=== PATIENT | male | born 1970 | race African-American/Black ===

== ENCOUNTER 2024-01-09 20:13 | Emergency (ER) | payer MEDICARE ==
[~2024-01-09] VITALS: Ht 162.6 cm; Wt 54.5 kg
[2024-01-09 20:19] VITALS: TEMP 98.1
[2024-01-09] MEDS ORDERED: LISI-658 PO (20:34)
[2024-01-09] MEDS ORDERED: DICY-1 PO (20:43)
[2024-01-09] MEDS ORDERED: AMLO-258 PO (20:43)
[2024-01-09] MEDS ORDERED: PANT-31 PO (20:43)
[2024-01-09] MEDS ORDERED: FOLI-130 PO (20:43)
[2024-01-09] MEDS ORDERED: LEVO50 PO (20:43)
[2024-01-09] MEDS ORDERED: ATOR40TA28 PO (20:43)
[2024-01-09] MEDS ORDERED: AMYL1CAP63 PO (20:43)
[2024-01-09] MEDS ORDERED: LACO100 PO (20:43)
[2024-01-09] MEDS ORDERED: TRAZ-252 PO (20:43)
[2024-01-09] MEDS ORDERED: RISP-32 PO (20:43)
[2024-01-09] MEDS ORDERED: LORazepam 2 MG/ML VIAL ONE (21:30)
[2024-01-09] MEDS ORDERED: LORazepam 2 MG/ML VIAL IM ONE (21:45)
[2024-01-09] MEDS: LACOSAMIDE 100 MG TABLET PO ONE (22:02)
[2024-01-09] MEDS: LORazepam 2 MG/ML VIAL IVP ONE (22:02)
[2024-01-09 22:35] LABS: BASOPHILS % (AUTO) 0.3 % (0.0-2.0); EOSINOPHILS % (AUTO) 0.4 % (1.0-6.0); HEMATOCRIT 30.6 % (41-53); HEMOGLOBIN 9.6 g/dL (13.5-17.5); LYMPHOCYTES # (AUTO) 1.8 K/uL (1.0-4.8); MEAN CORPUSCULAR HEMOGLOBIN 27.9 pg (26.0-34.0); MEAN CORPUSCULAR HGB CONC 31.4 G/dL (31.0-37.0); MEAN CORPUSCULAR VOLUME 89 fL (80-100); MONOCYTES # (AUTO) 0.9 K/uL (0.1-1.0); NEUTROPHILS # (AUTO) 9.6 K/uL (1.8-7.7); NEUTROPHILS % (AUTO) 77.3 % (40.0-70.0); PLATELET COUNT (AUTO) 194 K/uL (150-450); RED BLOOD CELL COUNT(AUTO) 3.45 MIL/uL (4.50-5.90); RED CELL DISTRIBUTION WIDTH 17.1 % (11.5-14.5); WHITE BLOOD COUNT (AUTO) 12.4 K/uL (4.5-11.0)
[2024-01-09 22:38] LABS: CALCIUM, TOTAL 8.7 mg/dL (8.8-10.5); CREATININE 2.69 mg/dL (0.60-1.30); POTASSIUM 4.5 mmol/L (3.5-5.1)
[2024-01-09] MEDS: LevETIRAcetam 1,000 MG in DEXTROSE 5%-WATER 100 ML IV ONE (22:44)
[2024-01-09 23:05] VITALS: BP 151/118; PULSE 86; RESP 20
[2024-01-09] MEDS: LISINOPRIL 10 MG TABLET PO STA (23:15)
[2024-01-09] MEDS: AmLODIPine BESYLATE 10 MG TABLET PO STA (23:15)
[2024-01-10] MEDS ORDERED: LISI-658 PO (00:21)
[2024-01-10] MEDS ORDERED: LACO100 PO (00:21)
[2024-01-10] MEDS ORDERED: AMLO-258 PO (00:21)
== END 2024-01-10 01:44 | disposition home or self-care (01) ==
LOC: EMS 20:13
DX: G40.909 Epilepsy, unspecified, not intractable, without status epilepticus (principal); I12.9 Hypertensive chronic kidney disease with stage 1 through stage 4 chronic kidney disease, or unspecified chronic kidney disease; N18.9 Chronic kidney disease, unspecified; I69.30 Unspecified sequelae of cerebral infarction; E78.00 Pure hypercholesterolemia, unspecified; Z91.148 Patient's other noncompliance with medication regimen for other reason
CPT/HCPCS: 99284; 96365; 96375; 80048; 85025; 36415; J0712; J2060; J7060

== ENCOUNTER 2024-04-16 22:55 | Inpatient (IN) | payer MEDICARE ==
[~2024-04-16] VITALS: Ht 170.2 cm; Wt 61.4 kg
[~2024-04-16 22:55] MED LIST: ACET-2247 PO; ALBU2.5V39 NEB; AMLO-258 PO; AMYL1CAP63 PO; ATOR40TA28 PO; BICIT15L PO; BICIT30L PO; BISA-151 PO; CLON1PAT12 TD; DICY-1 PO; FAMO10VI2 IVP; FOLI-130 PO; HALO5VIA16 IM; HEPA500018 SQ; HYDR-4062 PO; HYDR20I IVP; LABE5VIA IVP; LACO100T14 PO; LEVO50 PO; LISI-658 PO; LOPE-232 NG; LORA2I IVP; METO25 PO; MICO57CR2 TP; NITR1OIN TP; PANT-31 PO; RISP-32 PO; TRAZ-252 PO; [UNRECOGNIZED DRUG - CODE] IV
[2024-04-17] MEDS ORDERED: ONDANSETRON HCL 4 MG/2 ML VIAL IVP PRN (12:45)
[2024-04-17] MEDS: HEPARIN SODIUM,PORCINE 5,000 UNITS/ML VIAL SQ SCH (16:07)
[2024-04-17 17:15] VITALS: BP 148/93; PULSE 75; RESP 18; TEMP 96.1; O2SAT 97
[2024-04-17 19:36] VITALS: BP 150/101; PULSE 98; RESP 18; TEMP 97.3; O2SAT 95
[2024-04-17] MEDS: DOCUSATE SODIUM 100 MG/10 ML LIQUID UDCUP NG SCH (21:00)
[2024-04-17] MEDS: LevETIRAcetam 500 MG TABLET NG SCH (21:40)
[2024-04-17] MEDS: ACETAMINOPHEN 325 MG TABLET PO PRN (22:00)
[2024-04-18 00:26] LABS: GLUCOMETER DEV NAME(LOC) 6S.2; GLUCOSE,POINT OF CARE 93 MG/DL (70-110)
[2024-04-18 03:58] VITALS: BP 149/102; PULSE 95; RESP 18; TEMP 97; O2SAT 99
[2024-04-18 07:47] LABS: BASOPHILS % (AUTO) 0.5 % (0.0-2.0); EOSINOPHILS % (AUTO) 2.2 % (1.0-6.0); HEMATOCRIT 37.6 % (41-53); LYMPHOCYTES # (AUTO) 1.6 K/uL (1.0-4.8); LYMPHOCYTES % (AUTO) 16.9 % (22.0-44.0); MEAN CORPUSCULAR HEMOGLOBIN 28.3 pg (26.0-34.0); MEAN CORPUSCULAR HGB CONC 31.8 G/dL (31.0-37.0); MEAN CORPUSCULAR VOLUME 89 fL (80-100); MONOCYTES # (AUTO) 0.9 K/uL (0.1-1.0); MONOCYTES % (AUTO) 10.1 % (2.0-9.0); NEUTROPHILS # (AUTO) 6.5 K/uL (1.8-7.7); NEUTROPHILS % (AUTO) 70.3 % (40.0-70.0); PLATELET COUNT (AUTO) 300 K/uL (150-450); RED BLOOD CELL COUNT(AUTO) 4.24 MIL/uL (4.50-5.90); RED CELL DISTRIBUTION WIDTH 19.4 % (11.5-14.5); WHITE BLOOD COUNT (AUTO) 9.2 K/uL (4.5-11.0)
[2024-04-18 08:00] VITALS: BP 133/90; PULSE 69; RESP 18; TEMP 98; O2SAT 98
[2024-04-18 08:22] LABS: ALBUMIN 1.9 g/dL (3.4-5.0); BILIRUBIN,TOTAL 0.3 mg/dL (0.1-1.0); CALCIUM, TOTAL 10.5 mg/dL (8.8-10.5); CREATININE 2.06 mg/dL (0.60-1.30); MAGNESIUM 2.4 mg/dL (1.80-2.40); PHOSPHORUS 5.2 mg/dL (2.5-4.9); POTASSIUM 4.4 mmol/L (3.5-5.1); TOTAL PROTEIN, SERUM 6.9 g/dL (6.4-8.2)
[2024-04-18 09:15] LABS: GLUCOMETER DEV NAME(LOC) 6S.2; GLUCOSE,POINT OF CARE 95 MG/DL (70-110)
[2024-04-18] MEDS: ATORVASTATIN CALCIUM 20 MG TABLET NG SCH (09:45)
[2024-04-18] MEDS: ASPIRIN 81 MG CHEWABLE TABLET NG SCH (09:45)
[2024-04-18] MEDS: FAMOTIDINE 20 MG TABLET PO SCH (09:45)
[2024-04-18 16:10] VITALS: BP 144/101; PULSE 90; RESP 19; TEMP 97.2; O2SAT 98
[2024-04-18 17:16] LABS: GLUCOMETER DEV NAME(LOC) 6S.2; GLUCOSE,POINT OF CARE 102 MG/DL (70-110)
[2024-04-18 19:26] LABS: GLUCOMETER DEV NAME(LOC) 6S.2; GLUCOSE,POINT OF CARE 100 MG/DL (70-110)
[2024-04-18 21:31] LABS: GLUCOMETER DEV NAME(LOC) 6S.2; GLUCOSE,POINT OF CARE 104 MG/DL (70-110)
[2024-04-18 22:11] VITALS: BP 151/96; PULSE 84; RESP 20; TEMP 98.3; O2SAT 98
[2024-04-19 05:33] VITALS: BP 143/93; PULSE 80; RESP 18; TEMP 98.5; O2SAT 98
[2024-04-19 06:56] LABS: GLUCOMETER DEV NAME(LOC) 6S.2; GLUCOSE,POINT OF CARE 109 MG/DL (70-110)
[2024-04-19 07:29] VITALS: BP 148/96; PULSE 84; RESP 18; TEMP 98.4; O2SAT 98
[2024-04-19 13:00] LABS: GLUCOMETER DEV NAME(LOC) 6S.2; GLUCOSE,POINT OF CARE 114 MG/DL (70-110)
[2024-04-19 15:17] VITALS: BP 138/89; PULSE 90; RESP 20; TEMP 98.4; O2SAT 93
[2024-04-19 19:40] VITALS: BP 150/91; PULSE 89; RESP 18; TEMP 98.7; O2SAT 93
[2024-04-20 04:25] VITALS: BP 143/92; PULSE 105; RESP 18; TEMP 98.3; O2SAT 95
[2024-04-20 04:51] LABS: GLUCOMETER DEV NAME(LOC) 6S.2; GLUCOSE,POINT OF CARE 122 MG/DL (70-110)
[2024-04-20 04:51] LABS: GLUCOMETER DEV NAME(LOC) 6S.2; GLUCOSE,POINT OF CARE 121 MG/DL (70-110)
[2024-04-20 06:56] LABS: GLUCOMETER DEV NAME(LOC) 6S.2; GLUCOSE,POINT OF CARE 122 MG/DL (70-110)
[2024-04-20 07:34] VITALS: BP 144/95; PULSE 99; RESP 20; TEMP 98.5; O2SAT 100
[2024-04-20 12:20] LABS: GLUCOMETER DEV NAME(LOC) 6S.2; GLUCOSE,POINT OF CARE 126 MG/DL (70-110)
[2024-04-20 15:51] VITALS: BP 149/95; PULSE 88; RESP 20; TEMP 98.4; O2SAT 99
[2024-04-20 17:56] LABS: GLUCOMETER DEV NAME(LOC) 6S.2; GLUCOSE,POINT OF CARE 127 MG/DL (70-110)
[2024-04-20 19:45] VITALS: BP 142/95; PULSE 97; RESP 18; TEMP 99.5; O2SAT 94
[2024-04-20 21:00] LABS: GLUCOMETER DEV NAME(LOC) 6S.2; GLUCOSE,POINT OF CARE 122 MG/DL (70-110)
[2024-04-21 04:08] VITALS: BP 149/98; PULSE 93; RESP 18; TEMP 98.3; O2SAT 98
[2024-04-21 08:41] VITALS: BP 158/101; PULSE 89; RESP 18; TEMP 97.6; O2SAT 100
[2024-04-21 14:45] LABS: GLUCOMETER DEV NAME(LOC) 6S.2; GLUCOSE,POINT OF CARE 112 MG/DL (70-110)
[2024-04-21 16:04] VITALS: BP 139/98; PULSE 80; RESP 18; TEMP 97.3; O2SAT 99
[2024-04-21 19:22] VITALS: BP 146/96; PULSE 76; RESP 18; TEMP 97.6; O2SAT 97
[2024-04-21 19:56] LABS: GLUCOMETER DEV NAME(LOC) 6S.2; GLUCOSE,POINT OF CARE 104 MG/DL (70-110)
[2024-04-21 22:42] LABS: GLUCOMETER DEV NAME(LOC) 6S.2; GLUCOSE,POINT OF CARE 105 MG/DL (70-110)
[2024-04-22 04:38] VITALS: BP 151/99; PULSE 71; RESP 18; TEMP 98.4; O2SAT 97
[2024-04-22 07:05] LABS: GLUCOMETER DEV NAME(LOC) 6S.2; GLUCOSE,POINT OF CARE 124 MG/DL (70-110)
[2024-04-22 07:45] LABS: BASOPHILS % (AUTO) 0.5 % (0.0-2.0); HEMATOCRIT 35.2 % (41-53); HEMOGLOBIN 11.1 g/dL (13.5-17.5); LYMPHOCYTES # (AUTO) 2.5 K/uL (1.0-4.8); LYMPHOCYTES % (AUTO) 22.2 % (22.0-44.0); MEAN CORPUSCULAR HGB CONC 31.5 G/dL (31.0-37.0); MEAN CORPUSCULAR VOLUME 89 fL (80-100); MONOCYTES # (AUTO) 0.9 K/uL (0.1-1.0); NEUTROPHILS # (AUTO) 7.5 K/uL (1.8-7.7); NEUTROPHILS % (AUTO) 66.3 % (40.0-70.0); PLATELET COUNT (AUTO) 358 K/uL (150-450); RED BLOOD CELL COUNT(AUTO) 3.96 MIL/uL (4.50-5.90); RED CELL DISTRIBUTION WIDTH 18.7 % (11.5-14.5); WHITE BLOOD COUNT (AUTO) 11.4 K/uL (4.5-11.0)
[2024-04-22 08:37] LABS: CALCIUM, TOTAL 10.7 mg/dL (8.8-10.5); CREATININE 2.39 mg/dL (0.60-1.30)
[2024-04-22 12:21] LABS: GLUCOMETER DEV NAME(LOC) 6S.2; GLUCOSE,POINT OF CARE 110 MG/DL (70-110)
[2024-04-22 19:15] LABS: GLUCOMETER DEV NAME(LOC) 6S.2; GLUCOSE,POINT OF CARE 107 MG/DL (70-110)
[2024-04-22 19:34] VITALS: BP 153/91; PULSE 76; RESP 18; TEMP 98.2; O2SAT 97
[2024-04-23 04:07] VITALS: BP 156/89; PULSE 80; RESP 18; TEMP 98.5; O2SAT 100
[2024-04-23 07:33] VITALS: BP 150/99; PULSE 69; RESP 20; TEMP 98.3; O2SAT 100
[2024-04-23 07:34] VITALS: BP 150/99; PULSE 69; RESP 20; TEMP 98.3; O2SAT 100
[2024-04-23 07:51] LABS: GLUCOMETER DEV NAME(LOC) 6S.2; GLUCOSE,POINT OF CARE 107 MG/DL (70-110)
[2024-04-23 07:51] LABS: GLUCOMETER DEV NAME(LOC) 6S.2; GLUCOSE,POINT OF CARE 104 MG/DL (70-110)
[2024-04-23 15:10] VITALS: BP 150/99; PULSE 80; RESP 18; TEMP 98.6; O2SAT 99
[2024-04-23 16:29] LABS: APPEARANCE,URINE CLEAR (CLEAR); BILIRUBIN,URINE NEGATIVE (NEGATIVE); COLOR,URINE LIGHT YELLOW (YELLOW); GLUCOSE, URINE (UA) NEGATIVE (NEGATIVE); KETONES,URINE NEGATIVE (NEGATIVE); LEUKOCYTE ESTERASE ,URINE NEGATIVE (NEGATIVE); NITRATE,URINE NEGATIVE (NEGATIVE); OCCULT BLOOD,URINE SMALL (NEGATIVE); PROTEIN,URINE 300-600,SEE CONFIRM mg/dL (NEGATIVE); SPECIFIC GRAVITIY, URINE 1.014 (1.003-1.030); UROBILINOGEN,URINE <=1.0 mg/dL (<=1.0)
[2024-04-23] MEDS: AmLODIPine BESYLATE 5 MG TABLET NG SCH (16:47)
[2024-04-23 17:11] LABS: GLUCOMETER DEV NAME(LOC) 6S.2; GLUCOSE,POINT OF CARE 104 MG/DL (70-110)
[2024-04-23 17:17] LABS: BACTERIA,URINE Rare /HPF (None Seen); SQUAMOUS EPITHELIAL CELL,UR Rare /LPF (None Seen); WBC,URINE 0-2 /HPF (0-5)
[2024-04-23 17:18] LABS: SULFOSALICYLIC ACID,URINE 1+ (Negative)
[2024-04-23 17:56] LABS: GLUCOMETER DEV NAME(LOC) 6S.2; GLUCOSE,POINT OF CARE 99 MG/DL (70-110)
[2024-04-23 21:11] VITALS: BP 144/94; PULSE 82; RESP 18; TEMP 98.2; O2SAT 99
[2024-04-23 22:36] LABS: GLUCOMETER DEV NAME(LOC) 6S.2; GLUCOSE,POINT OF CARE 118 MG/DL (70-110)
[2024-04-24 04:31] VITALS: BP 144/95; PULSE 89; RESP 18; TEMP 98.3; O2SAT 98
[2024-04-24 07:26] LABS: CALCIUM, TOTAL 10.9 mg/dL (8.8-10.5); CREATININE 2.56 mg/dL (0.60-1.30); POTASSIUM 5.3 mmol/L (3.5-5.1)
[2024-04-24 07:33] VITALS: BP 142/102; PULSE 83; RESP 18; TEMP 98.1; O2SAT 98
[2024-04-24 13:21] LABS: GLUCOMETER DEV NAME(LOC) 6S.2; GLUCOSE,POINT OF CARE 112 MG/DL (70-110)
[2024-04-24 13:21] LABS: GLUCOMETER DEV NAME(LOC) 6S.2; GLUCOSE,POINT OF CARE 112 MG/DL (70-110)
[2024-04-24] MEDS: SODIUM POLYSTYRENE SULFONATE 15 GM/60 ML SUSPENSION BOTTLE PO ONE (15:19)
[2024-04-24 15:32] VITALS: BP 122/97; PULSE 85; RESP 18; TEMP 97.3; O2SAT 97
[2024-04-24 19:42] VITALS: BP 138/98; PULSE 88; RESP 18; TEMP 97.9; O2SAT 100
[2024-04-25 04:12] VITALS: BP 137/97; PULSE 94; RESP 18; TEMP 98.5; O2SAT 95
[2024-04-25 06:50] LABS: GLUCOMETER DEV NAME(LOC) 6S.2; GLUCOSE,POINT OF CARE 99 MG/DL (70-110)
[2024-04-25 06:50] LABS: GLUCOMETER DEV NAME(LOC) 6S.2; GLUCOSE,POINT OF CARE 113 MG/DL (70-110)
[2024-04-25 07:26] LABS: GLUCOMETER DEV NAME(LOC) 6S.2; GLUCOSE,POINT OF CARE 117 MG/DL (70-110)
[2024-04-25 07:45] VITALS: BP 161/100; PULSE 88; RESP 19; TEMP 98.2; O2SAT 98
[2024-04-25] MEDS: CloNIDine HCL 0.1 MG TABLET NG PRN (08:21)
[2024-04-25 10:10] VITALS: BP 123/64; PULSE 84; RESP 18; O2SAT 96
[2024-04-25 16:52] VITALS: BP 132/69; PULSE 89; RESP 18; TEMP 98.5; O2SAT 97
[2024-04-25 19:37] VITALS: BP 132/85; PULSE 88; RESP 18; TEMP 98.4; O2SAT 99
[2024-04-26 04:45] VITALS: BP 137/89; PULSE 87; RESP 18; TEMP 98.2; O2SAT 99
[2024-04-26 08:02] VITALS: BP 112/90; PULSE 92; RESP 18; TEMP 98.4; O2SAT 99
[2024-04-26 15:58] VITALS: BP 138/99; PULSE 80; RESP 20; TEMP 98.5; O2SAT 100
[2024-04-26 19:16] LABS: GLUCOMETER DEV NAME(LOC) 6S.2; GLUCOSE,POINT OF CARE 108 MG/DL (70-110)
[2024-04-26 19:16] LABS: GLUCOMETER DEV NAME(LOC) 6S.2; GLUCOSE,POINT OF CARE 120 MG/DL (70-110)
[2024-04-26 19:16] LABS: GLUCOMETER DEV NAME(LOC) 6S.2; GLUCOSE,POINT OF CARE 95 MG/DL (70-110)
[2024-04-26 19:16] LABS: GLUCOMETER DEV NAME(LOC) 6S.2; GLUCOSE,POINT OF CARE 126 MG/DL (70-110)
[2024-04-26 21:06] LABS: GLUCOMETER DEV NAME(LOC) 5S.2D; GLUCOSE,POINT OF CARE 105 MG/DL (70-110)
== END 2024-04-26 16:38 | DRG 100 ==
LOC: EMS 22:55 → EDH 04-17 13:34 → 6S 04-17 15:16
PROVIDERS: ADMIT Internal Medicine; ATTEND Internal Medicine
PROC: 0D20XUZ Change Feeding Device in Upper Intestinal Tract, External Approach (ICD-10-PCS; principal; 2024-04-17)
DX: G40.909 Epilepsy, unspecified, not intractable, without status epilepticus (principal); E43 Unspecified severe protein-calorie malnutrition; K86.1 Other chronic pancreatitis; R62.7 Adult failure to thrive; R13.10 Dysphagia, unspecified; D63.8 Anemia in other chronic diseases classified elsewhere; I12.9 Hypertensive chronic kidney disease with stage 1 through stage 4 chronic kidney disease, or unspecified chronic kidney disease; N18.9 Chronic kidney disease, unspecified; E87.5 Hyperkalemia; E03.9 Hypothyroidism, unspecified; D63.1 Anemia in chronic kidney disease; E78.00 Pure hypercholesterolemia, unspecified; Z46.59 Encounter for fitting and adjustment of other gastrointestinal appliance and device; Z86.73 Personal history of transient ischemic attack (TIA), and cerebral infarction without residual deficits; Z87.891 Personal history of nicotine dependence; Z90.411 Acquired partial absence of pancreas; Z68.21 Body mass index [BMI] 21.0-21.9, adult
CPT/HCPCS: 71045; 74230; 80048; 80053; 81001; 81002; 82962; 83735; 84100; 84132; 85025; 87081; 87481; 92526; 92611; 97110; 97112; 97163; 97167; 97530; 97535; 99285; J1644; 36415-L1; 36415-TC

== ENCOUNTER 2024-08-17 00:16 | Inpatient (IN) | payer MEDICARE ==
[~2024-08-17] VITALS: Ht 172.7 cm; Wt 65.0 kg
[~2024-08-17 00:16] MED LIST changes: -ACET-2247 PO; -ALBU2.5V39 NEB; +AMLO-257 PO; -AMLO-258 PO; -AMYL1CAP63 PO; +ASPI-1198 PO; +ATOR20TA65 PO; -ATOR40TA28 PO; -BICIT15L PO; -BICIT30L PO; -BISA-151 PO; -CLON1PAT12 TD; -DICY-1 PO; -FAMO10VI2 IVP; +FAMO20 PO; -FOLI-130 PO; +FOLI0.8T54 PO; -HALO5VIA16 IM; -HEPA500018 SQ; -HYDR-4062 PO; -HYDR20I IVP; -LABE5VIA IVP; -LACO100T14 PO; +LEVE500T8 PO; -LEVO50 PO; -LISI-658 PO; -LOPE-232 NG; -LORA2I IVP; -METO25 PO; -MICO57CR2 TP; -NITR1OIN TP; -PANT-31 PO; -RISP-32 PO; +SIME80TA13 CHEW; +SODI5POW3 PO; +SODI650T33 PO; -TRAZ-252 PO; -[UNRECOGNIZED DRUG - CODE] IV
[2024-08-17] MEDS: LevETIRAcetam 1,000 MG in DEXTROSE 5%-WATER 100 ML IV ONE (02:24)
[2024-08-17 02:48] LABS: ANION GAP 6 mmol/L (8-16); CALCIUM, TOTAL 8.5 mg/dL (8.8-10.5); CARBON DIOXIDE 35 mmol/L (22-29); CHLORIDE 103 mmol/L (98-107); CREATININE 3.44 mg/dL (0.60-1.30); GLOMERULAR FILTR. RATE CALC 23 mL/min (>60); GLUCOSE,RANDOM 102 mg/dL (70-110); POTASSIUM 4.2 mmol/L (3.5-5.1); SODIUM SERUM 144 mmol/L (136-145); UREA NITROGEN, BLOOD 30 mg/dL (7-18)
[2024-08-17 02:54] LABS: ALCOHOL, BLOOD (SERUM) < 3 mg/dL (0-10)
[2024-08-17 03:19] LABS: ALANINE AMINOTRANSFERASE 59 U/L (12-78); ALBUMIN 2.9 g/dL (3.4-5.0); ALKALINE PHOSPHATASE 199 U/L (46-116); ASPARTATE AMINOTRANSFERASE 42 U/L (15-37); BILIRUBIN,TOTAL 0.5 mg/dL (0.1-1.0); CREATINE KINASE, TOTAL ONLY 79 U/L (39-308); TOTAL PROTEIN, SERUM 6.6 g/dL (6.4-8.2); TROPONIN I-HIGH SENSITIVITY 8 ng/L (<76)
[2024-08-17 03:40] LABS: B-TYPE NATRIURETIC PEPTIDE 15 pg/mL (0-100)
[2024-08-17 03:53] LABS: BASOPHILS % (AUTO) 0.3 % (0.0-2.0); EOSINOPHILS % (AUTO) 1.3 % (1.0-6.0); HEMATOCRIT 29.2 % (41-53); HEMOGLOBIN 9.4 g/dL (13.5-17.5); LYMPHOCYTES # (AUTO) 1.6 K/uL (1.0-4.8); LYMPHOCYTES % (AUTO) 16.4 % (22.0-44.0); MEAN CORPUSCULAR HEMOGLOBIN 30.3 pg (26.0-34.0); MEAN CORPUSCULAR HGB CONC 32.3 G/dL (31.0-37.0); MEAN CORPUSCULAR VOLUME 94 fL (80-100); MONOCYTES # (AUTO) 0.8 K/uL (0.1-1.0); MONOCYTES % (AUTO) 7.9 % (2.0-9.0); NEUTROPHILS # (AUTO) 7.1 K/uL (1.8-7.7); NEUTROPHILS % (AUTO) 74.1 % (40.0-70.0); RED BLOOD CELL COUNT(AUTO) 3.11 MIL/uL (4.50-5.90); RED CELL DISTRIBUTION WIDTH 15.1 % (11.5-14.5); WHITE BLOOD COUNT (AUTO) 9.5 K/uL (4.5-11.0)
[2024-08-17 04:11] LABS: PLATELET COUNT (AUTO) 56 K/uL (150-450)
[2024-08-17 10:30] VITALS: BP 116/73; PULSE 73; RESP 17; TEMP 98.1; O2SAT 98
[2024-08-17 12:03] VITALS: BP 112/79; PULSE 78; RESP 18; TEMP 98.1; O2SAT 98
[2024-08-17 16:00] VITALS: BP 115/80; PULSE 89; RESP 18; TEMP 98.5; O2SAT 97
[2024-08-17] MEDS: TraMADol HCL 50 MG TABLET PO ONE ×2 (17:52→23:55)
[2024-08-17] MEDS: FOLIC ACID/VIT B COMPLEX AND C TABLET PO SCH (18:35)
[2024-08-17 19:34] VITALS: BP 123/83; PULSE 93; RESP 17; TEMP 98.1; O2SAT 96
[2024-08-17 23:57] VITALS: BP 118/80; PULSE 87; RESP 17; TEMP 98.3; O2SAT 98
[2024-08-18 03:54] VITALS: BP 108/74; PULSE 89; RESP 18; TEMP 98.2; O2SAT 96
[2024-08-18 08:00] VITALS: BP 111/73; PULSE 62; RESP 18; TEMP 97.6; O2SAT 97
[2024-08-18] MEDS: TraMADol HCL 50 MG TABLET PO ONE (11:30)
[2024-08-18 12:02] LABS: APPEARANCE,URINE CLEAR (CLEAR); BILIRUBIN,URINE NEGATIVE (NEGATIVE); COLOR,URINE YELLOW (YELLOW); GLUCOSE, URINE (UA) NEGATIVE (NEGATIVE); KETONES,URINE NEGATIVE (NEGATIVE); LEUKOCYTE ESTERASE ,URINE NEGATIVE (NEGATIVE); NITRATE,URINE NEGATIVE (NEGATIVE); OCCULT BLOOD,URINE NEGATIVE (NEGATIVE); PROTEIN,URINE 100-200,SEE CONFIRM mg/dL (NEGATIVE); SPECIFIC GRAVITIY, URINE 1.015 (1.003-1.030); UROBILINOGEN,URINE <=1.0 mg/dL (<=1.0)
[2024-08-18 12:07] LABS: ALCOHOL, URINE DRUG SCREEN NEGATIVE (NEGATIVE); AMPHET/METH SCREEN,URINE NEGATIVE (NEGATIVE); BARBITURATE SCREEN, URINE NEGATIVE (NEGATIVE); BENZODIAZEPINES SCREEN,URINE NEGATIVE (NEGATIVE); CANNABINOID SCREEN,URINE NEGATIVE (NEGATIVE); COCAINE SCREEN,URINE NEGATIVE (NEGATIVE); METHADONE SCREEN, URINE NEGATIVE (NEGATIVE); OPIATE SCREEN,URINE NEGATIVE (NEGATIVE); PHENCYCLIDINE SCREEN,URINE NEGATIVE (NEGATIVE)
[2024-08-18 12:18] VITALS: BP 115/75; PULSE 70; RESP 18; TEMP 98; O2SAT 97
[2024-08-18 12:38] LABS: BACTERIA,URINE None Seen /HPF (None Seen); RBC,URINE None Seen /HPF (0-2); SULFOSALICYLIC ACID,URINE 2+ (Negative); WBC,URINE 0-2 /HPF (0-5)
[2024-08-18 12:39] LABS: SQUAMOUS EPITHELIAL CELL,UR Few /LPF (None Seen)
[2024-08-18] MEDS: SODIUM BICARBONATE 650 MG TABLET PO SCH (16:34)
[2024-08-18 16:49] VITALS: BP 113/82; PULSE 68; RESP 18; TEMP 98.4; O2SAT 99
[2024-08-18 19:45] VITALS: BP 114/79; PULSE 86; RESP 18; TEMP 98.1; O2SAT 97
[2024-08-18] MEDS: LevETIRAcetam 500 MG TABLET PO SCH (20:48)
[2024-08-19 00:40] VITALS: BP 134/93; PULSE 85; RESP 18; TEMP 97.7; O2SAT 96
[2024-08-19] MEDS: TraMADol HCL 50 MG TABLET PO ONE (03:35)
[2024-08-19 05:42] VITALS: BP 125/84; PULSE 80; RESP 18; TEMP 98.1; O2SAT 98
[2024-08-19] MEDS: ATORVASTATIN CALCIUM 20 MG TABLET PO SCH (07:45)
[2024-08-19] MEDS: ASPIRIN 81 MG CHEWABLE TABLET PO SCH (07:45)
[2024-08-19] MEDS: EPOETIN ALFA 10,000 UNITS/ML VIAL SQ SCH (07:46)
[2024-08-19 08:00] VITALS: BP 119/75; PULSE 83; RESP 18; TEMP 98.3; O2SAT 97
[2024-08-19] MEDS: SODIUM ZIRCONIUM CYCLOSILICATE 5 GM POWDER PACKET PO SCH (09:55)
[2024-08-19 10:48] VITALS: BP 122/72; PULSE 78; RESP 19; TEMP 98.1; O2SAT 97
== END 2024-08-19 12:30 | disposition home or self-care (01) | DRG 73 ==
LOC: EMS 00:18 → EDH 06:10 → 5S 10:40
PROVIDERS: ADMIT Internal Medicine; ATTEND Internal Medicine
DX: G90.89 Other disorders of autonomic nervous system (principal); N18.6 End stage renal disease; I12.0 Hypertensive chronic kidney disease with stage 5 chronic kidney disease or end stage renal disease; G40.909 Epilepsy, unspecified, not intractable, without status epilepticus; E78.00 Pure hypercholesterolemia, unspecified; E03.9 Hypothyroidism, unspecified; Z86.73 Personal history of transient ischemic attack (TIA), and cerebral infarction without residual deficits; Z99.2 Dependence on renal dialysis; Z87.891 Personal history of nicotine dependence; Z79.82 Long term (current) use of aspirin; Z79.899 Other long term (current) drug therapy
CPT/HCPCS: 70450; 71045; 80048; 80076; 80307; 81001; 81002; 82550; 83735; 83880; 84484; 85025; 93005; 93306; 93880; 99285; G0480; J0712; J0885; J7060; 36415-L1; 36415-TC

== ENCOUNTER 2024-08-19 17:35 | Emergency (ER) | payer MEDICARE ==
[~2024-08-19] VITALS: Ht 160 cm; Wt 61.4 kg
[2024-08-19 17:59] VITALS: BP 124/78; PULSE 91; RESP 16; TEMP 98.3; O2SAT 98
== END 2024-08-19 19:00 | disposition left against medical advice (07) ==
LOC: EMS 17:35
DX: Z53.21 Procedure and treatment not carried out due to patient leaving prior to being seen by health care provider (principal)